=== PATIENT | female | born 1970 | race Two or more races ===

== ENCOUNTER 2017-09-26 18:39 | Emergency (ER) | payer MEDICAID ==
[~2017-09-26] VITALS: Ht 154.9 cm; Wt 73.9 kg
[2017-09-26] MEDS ORDERED: LORazepam 0.5mg tab ORAL ONE (20:15)
--- NOTE | 2017-09-26 20:46 | Emergency Room Report ---
History of Present Illness General Chief Complaint: General Complaint Source: Patient Present Illness [facility] The patient is a 47-year-old female with a history of schizophrenia and anxiety presenting for possible anxiety. She is a resident at [facility]. She has a primary doctor as well as psychiatrist. She states that approximately 3 hours prior, she felt some anxiety but does not anymore. She denies any known onset for the anxiety. She routinely takes anxiolytics. She denies any other symptoms at this time including suicidal ideation, depression, headache, dizziness, blurred vision, chest pain, shortness of breath Allergies: Coded Allergies: ARIPIPRAZOLE (Verified Allergy, Unknown, 09/26/17) HALOPERIDOL (Verified Allergy, Unknown, 09/26/17) PAROXETINE (Verified Allergy, Unknown, 09/26/17) Patient History Past Medical History: see triage record Pertinent Family History: none Last Menstrual Period: march 2016 Reviewed Nursing Documentation: PMH: Agreed, PSxH: Agreed Nursing Documentation-PMH Hx Cardiac Problems: Yes - HYPERLIPIDEMIA Hx Hypertension: Yes Hx Diabetes: Yes Hx Gastrointestinal Problems: Yes - GERD History Of Psychiatric Problem: Yes - SCHIZO Review of Systems All Other Systems: negative except mentioned in HPI Physical Exam Vital Signs Date Time Temp Pulse Resp B/P (MAP) Pulse Ox O2 Delivery O2 Flow Rate FiO2 09/26/17 19:22 97.9 93 16 143/90 99 Room Air Sp02 EP Interpretation: reviewed, normal General Appearance: no apparent distress, alert, GCS 15, non-toxic Head: normocephalic, atraumatic Eyes: bilateral eye normal inspection, bilateral eye PERRL ENT: hearing grossly normal, normal pharynx, no angioedema, normal voice Neck: full range of motion, supple/symm/no masses Respiratory: chest non-tender, lungs clear, normal breath sounds, speaking full sentences Cardiovascular #1: regular rate, rhythm, no edema Genitourinary: normal inspection, no CVA tenderness Musculoskeletal: back normal, gait/station normal, normal range of motion, non- tender Neurologic: alert, oriented x3, responsive, motor strength/tone normal, sensory intact, speech normal Psychiatric: judgement/insight normal, memory normal, mood/affect normal, no suicidal/homicidal ideation Skin: normal color, no rash, warm/dry, well hydrated Medical Decision Making PA Attestation Dr. Cota is my supervising physician. Patient management was discussed with my supervising physician Diagnostic Impression: Primary Impression: Anxiety ER Course The patient is a 47-year-old female with a history of schizophrenia and anxiety presenting for possible anxiety Differential diagnoses considered but not limited to anxiety, suicidal ideation , homicidal ideation, depression PE; NAD ANO x3. The patient is relaxed RRR Lungs are clear to auscultation bilaterally The patient is given 0.5 mg of Ativan and will return to [facility] for further care. She was told to see her psychiatrist for discussion of anxiolytic dosage. ER precautions are given Last Vital Signs Date Time Temp Pulse Resp B/P (MAP) Pulse Ox O2 Delivery O2 Flow Rate FiO2 09/26/17 19:22 97.9 93 16 143/90 99 Room Air Status: improved Disposition: ASSISTED LIVING Condition: Improved Patient Instructions: Panic Attacks Additional Instructions: I discussed my findings with the patient. All questions and concerns have been answered. Treatment and medication compliance have been addressed. The patient will follow up with her psychiatrist for discussion regarding anxiety medications Return to ED if symptoms worsen, new symptoms arise, or if needed for any reason. Patient verbalized understanding of discharge instructions. LAURIE CHRISTIANSON Sep 26, 2017 20:46
[2017-09-26 21:26] VITALS: BP 143/90
[2017-09-26 21:29] VITALS: BP 143/90
== END 2017-09-26 21:50 | disposition home or self-care (01) ==
LOC: EMR 21:30
DX: F41.9 Anxiety disorder, unspecified (principal); K21.9 Gastro-esophageal reflux disease without esophagitis; F20.9 Schizophrenia, unspecified; E11.9 Type 2 diabetes mellitus without complications; I10 Essential (primary) hypertension; E78.5 Hyperlipidemia, unspecified; Z88.8 Allergy status to other drugs, medicaments and biological substances
CPT/HCPCS: 99283